=== PATIENT | female | born 1960 | race Caucasian/White ===

== ENCOUNTER 2019-04-15 13:56 | Emergency (ER) | payer OTHER ==
[~2019-04-15] VITALS: Ht 180.3 cm; Wt 146.1 kg
[2019-04-15 14:16] VITALS: Ht 180.3 cm; Wt 146.1 kg
[2019-04-15 17:51] VITALS: BP 165/70
== END 2019-04-15 17:51 | disposition home or self-care (01) ==
LOC: ED 13:56
DX: M25.561 Pain in right knee (principal); I10 Essential (primary) hypertension; E11.9 Type 2 diabetes mellitus without complications; I25.2 Old myocardial infarction; E03.9 Hypothyroidism, unspecified; M10.9 Gout, unspecified; Z86.2 Personal history of diseases of the blood and blood-forming organs and certain disorders involving the immune mechanism; Z90.721 Acquired absence of ovaries, unilateral
CPT/HCPCS: J1885